=== PATIENT | male | born 1955 | race Caucasian/White ===

== ENCOUNTER 2016-07-01 08:04 | Day surgery (SDC) | payer OTHER ==
--- NOTE | ~2016-07-01 | EGD ---
EGD REPORT [facility] [address] [place] [place] [address] NAME: FENG LEMON JR : 59 STATUS : REG [facility]#: [id number] AGE: 61 ADM/REG DATE : 07/01/16 MR#: [id number] REPORT SERV DATE: 07/01/16 DICTATED BY: BRYANT NAVARRO DATE: 07/01/16 REPORT STATUS : Draft TRANSCRIBED BY: [facility] DATE: 07/01/16 Endoscopy Center Patient Name: Feng Lemon Date of : 1955 Attending MD: BRYANT NAVARRO MD Procedure Date No Time: 07/01/2016 Procedure: Upper GI endoscopy Indications: Dysphagia, Abnormal CT of the GI tract Referring MD: GASTON WHYTE Medicines: as per anesthesia Complications: No immediate complications. Procedure: Pre-Anesthesia Assessment: - ASA Grade Assessment: II - A patient with mild systemic disease. After obtaining informed consent, the endoscope was passed under direct vision. Throughout the procedure, the patient's blood pressure, pulse, and oxygen saturations were monitored continuously. The GIF [id number] was introduced through the mouth, and advanced to the third part of duodenum. The upper GI endoscopy was accomplished without difficulty. The patient tolerated the procedure. Findings: The examined esophagus was normal. The scope was withdrawn. Dilation was performed with a Underwood dilator with no resistance at 46 Fr. Localized mild inflammation characterized by erythema was found in the gastric antrum. Biopsies were taken with a cold forceps for histology. The cardia and gastric fundus were normal on retroflexion. The examined duodenum was normal. Impression: - Normal esophagus. Dilated. - Gastritis. Biopsied. - Normal examined duodenum. Recommendation: - Await pathology results. Procedure Code(s): --- Professional --- 16869, Esophagogastroduodenoscopy, flexible, transoral; with biopsy, single or multiple 53454, Dilation of esophagus, by unguided sound or bougie, single or multiple passes Diagnosis Code(s): --- Professional --- K29.70, Gastritis, unspecified, without bleeding EGD REPORT [facility] [address] [place] [address] NAME: FENG LEMON JR : [birth year] STATUS : REG [facility] PAT#: [id number] AGE: 61 ADM/REG DATE : 07/01/16 MR#: [id number] REPORT SERV DATE: 07/01/16 DICTATED BY: BRYANT NAVARRO. DATE: 07/01/16 REPORT STATUS : Draft TRANSCRIBED BY: [employer] DATE: 07/01/16 R13.10, Dysphagia, unspecified R93.3, Abnormal findings on diagnostic imaging of other parts of digestive tract CPT copyright 2013 [employer]. All rights reserved. The codes documented in this report are preliminary and upon supervisor housecleaner review may be revised to meet current compliance requirements. BRYANT NAVARRO MD 07/01/2016 10:24 AM This report has been signed electronically. Number of Addenda: 0 Note Initiated On: 07/01/2016 10:01 AM Scope Withdrawal Time 0 hours 0 minutes 0 seconds [id number] [id number]
[~2016-07-01 08:04] MED LIST: LEUCOVOR CA5 MG PO; METHOTREXATE25 MG/ML SC; PROTONIX PO; SUBOXONE 8 MG-1 EAC1 SL; TRICOR145 PO; XANAX1 MG PO
== END 2016-07-01 23:59 | disposition home or self-care (01) ==
LOC: DMU 08:04
PROVIDERS: Internal Medicine Gastroenterology
PROC: 0DB68ZX Excision of Stomach, Via Natural or Artificial Opening Endoscopic, Diagnostic (ICD-10-PCS; principal; 2016-07-01 09:30)
PROC: 0D757ZZ Dilation of Esophagus, Via Natural or Artificial Opening (ICD-10-PCS; 2016-07-01 09:30)
DX: K29.70 Gastritis, unspecified, without bleeding (principal); R13.10 Dysphagia, unspecified; R93.3 Abnormal findings on diagnostic imaging of other parts of digestive tract; K21.9 Gastro-esophageal reflux disease without esophagitis; F11.21 Opioid dependence, in remission; Z87.891 Personal history of nicotine dependence; Z79.899 Other long term (current) drug therapy
CPT/HCPCS: 88305